=== PATIENT | female | born 1980 | race Caucasian/White ===

== ENCOUNTER → 2022-01-26 | Outpatient (CLI) | payer OTHER ==
--- NOTE | 2022-01-27 08:33 | MM ---
Reason for exam: clinical finding. Indicated problem(s): palpable abnormality and pain in the left breast. Physical Findings: A clinical breast exam by your physician is recommended on an annual basis and results should be correlated with mammographic findings. [facility] Diagnostic Mammo w CAD GREGORIO Bilateral CC, MLO, ML, spot compression MLO, and spot compression CC view(s) were taken. The breast tissue is heterogeneously dense. This may lower the sensitivity of mammography. Right posterior lateral and anterior superior asymmetric densities. These disperse on additional views. Left possible 1 o'clock global asymmetry. No persisting abnormality on additional views. Overlying palpable marker. These results were verbally communicated with the patient and result sheet given to the patient on 01/26/22. ASSESSMENT: Incomplete: need additional imaging evaluation, BI-RAD 0 RECOMMENDATION: Ultrasound of the left breast. (11-3 o'clock)
--- NOTE | 2022-01-27 08:37 | USB ---
Reason for exam: additional evaluation requested from abnormal screening. US Breast Limited LT Left limited breast ultrasound including focal area of concern, retroareolar and axilla demonstrates a 0.4 x 0.2 x 0.5cm small cyst at the palpable at 12 o'clock and a 1.0 x 0.5 x 0.6cm elongated cyst versus complex cyst at the posterior nipple. 6 month follow up recommended. Scanned 11-3 o'clock. These results were verbally communicated with the patient and result sheet given to the patient on 01/26/22. ASSESSMENT: Probably benign, BI-RAD 3 RECOMMENDATION: Ultrasound of the left breast in 6 months.
== END | disposition home or self-care (01) ==
LOC: RADMAMWWP 13:59
PROVIDERS: ATTEND Obstetrics & Gynecology
DX: N64.4 Mastodynia (principal); N60.09 Solitary cyst of unspecified breast
CPT/HCPCS: 77066

== ENCOUNTER → 2022-08-17 | Outpatient (CLI) | payer OTHER ==
--- NOTE | 2022-08-17 09:12 | USB ---
Reason for Exam: Follow-up at short interval from prior study. Patient History: Menarche at age 14. First Full-Term at age 24. Risk Values: Lima 5 year model risk: 0.5%. NCI Lifetime model risk: 9.0%. Prior Study Comparison: 01/26/2022 Bilateral Diagnostic Mammogram, [facility]. Findings: The upper section of the breast of the left breast, the axilla of the left breast and the retroareolar of the left breast were scanned. Stable cyst at the left 12:00 position. Stable cluster of cysts posterior to the nipple measuring 0.5 x 0.4 cm. Prominent but not enlarged lymph node left axilla. Six-month follow-up left breast ultrasound and bilateral mammography. Overall Assessment: Probably benign, BI-RAD 3 Management: Diagnostic Mammogram of both breasts in 6 months. A clinical breast exam by your physician is recommended on an annual basis and results should be correlated with mammographic findings. Electronically signed and approved by: Gomez Adamson M.D. [facility]
== END | disposition home or self-care (01) ==
LOC: RADUSWWP 08:40
PROVIDERS: ATTEND Obstetrics & Gynecology
DX: R92.8 Other abnormal and inconclusive findings on diagnostic imaging of breast (principal)